=== PATIENT | female | born 1995 | race Asian ===

== ENCOUNTER → 2018-04-28 | Outpatient (CLI) | payer OTHER | LOC: COL.RAD 08:13 | DX: K80.20 Calculus of gallbladder without cholecystitis without obstruction (principal); K83.8 Other specified diseases of biliary tract ==

== ENCOUNTER → 2018-05-25 | Outpatient (CLI) | payer OTHER | LOC: COL.RAD 14:39 | DX: K80.20 Calculus of gallbladder without cholecystitis without obstruction (principal) ==